=== PATIENT | female | born 1985 | race Caucasian/White ===

== ENCOUNTER → 2016-08-26 | Outpatient (CLI) | payer OTHER ==
--- NOTE | 2016-08-26 09:44 | US ---
August 26, 2016 Dear Providers at the [facility], Thank you for requesting a ultrasound to evaluate anatomy for your patient, Mrs. Hyman . As you know, Tameka is a 30 year old G 1, P 0 with a brock dating 19 w 5 d; KRISTEL of 0 01/15/17 by first trimester ultrasound. She had reassuring NIPT. ULTRASOUND Number of fetuses: 1 Placental location: Posterior; no evidence of previa Placental cord insertion: Intraplacental presentation: Cephalic Cervix: 4.3 cm viewed transabdominally Maximum Vertical Pocket: 4.9 cm The adnexa were evaluated. No pathology was seen. Right ovary is visualized and seen as normal. It measures 2.3 x 1.6 x 2.4 cm. Left ovary is visualized and seen as normal. It measures 3.4 x 1.9 x 1.9 cm. MEASUREMENTS: Biparietal diameter: 46 mm 20 weeks, 0 days Head circumference: 178 mm 20 weeks, 2 days Abdominal circumference: 150 mm 20 weeks, 2 days Femur length: 32 mm 20 weeks, 1 days Humerus length: 31 mm 20 weeks, 3 days Transcerebellar diameter: 21 mm 20 weeks, 1 days Average ultrasound age: 20 weeks, 2 days Estimated weight: 336 gm weight percentile: 71% ANATOMY Supratentorial brain: Normal including views of the falx, cavum septum pellucidum and choroids Lateral Ventricle: Normal, measuring 5.7 mm Posterior fossa: Normal including the cerebellum and cisterna magna Spine: Normal Nuchal fold: 3.3 mm normal Face: Normal views of the lip and nose area Profile: Normal Palate: Normal appearance of the alveolar ridge Heart: Normal four chamber view and the outflow tracts are seen appropriately oriented and crossing Heart Rate 132 bpm Diaphragm: Normal appearance without overt abnormality detected Stomach: Normal Umbilical cord insertion: Normal Right kidney: Normal Left kidney: Normal Bladder: Normal Number of cord vessels: Three Upper extremities: Normal Lower extremities: Normal Gender: Male IMPRESSION: 1. Intrauterine at 19 w 5 d, ultrasound is consistent with her established KRISTEL of 01/15/17 . 2. Normal anatomical survey. 3. Cervical length is normal at 4.3 cm without evidence of insufficiency. RECOMMENDATIONS: I was pleased to review today's ultrasound with your patient and her . I reassured her that t he baby is growing appropriately with normal amniotic fluid volume. Our detailed review of the anatomy did not reveal any overt abnormalities. Future ultrasound and consultation is left to your clinical discretion. Thank you for allowing us the opportunity to evaluate your patient. Should you have any further ques tions or concerns please do not hesitate to contact me. No E&M. Kenzie Clement MD [employer] Maternal Medicine Diagnosis Department of Obstetrics & Gynecology [facility]
--- NOTE | 2016-08-26 09:54 | US ---
Complete Obstetric Ultrasound History: 30-year-old with estimated gestational age of 19 weeks 5 days and EDC of January 15, 2017. Comparison: None available. Findings: Number: 1 Presentation: Vertex Placental location: Posterior. No previa. Cervix: Closed, measuring 4.4 cm transabdominally Maximum vertical pocket: 4.9 cm The ovaries are normal. Biometry: Biparietal diameter: 46 mm 20 weeks, 0 days Head circumference: 178 mm 20 weeks, 2 days Abdominal circumference: 150 mm 20 weeks, 2 days Femur length: 32 mm 20 weeks, 1 days Humerus length: 31 mm 20 weeks, 3 days Transcerebellar diameter: 21 mm 20 weeks, 1 days Average ultrasound age: 20 weeks, 2 days EDC based on today's average ultrasound age: January 11, 2017 Estimated weight is 336 gms +/- 49 gms. The estimated weight percentile is 71 % based on previous dating. ANATOMY SURVEY: Supratentorial brain: Normal Posterior fossa: Normal Spine: Normal Nose and lips: Normal Heart: Four chamber heart with heart rate of 132. The outflow tracts are normal. Stomach: Normal Umbilical cord insertion: Normal Kidneys: Normal Bladder: Normal Number of cord vessels: Three Upper extremities: Normal Lower extremities: Normal Impression: 1. Living single intrauterine with size concordant with dates. 2. Unremarkable anatomy. Please see separate dictation for consultation performed by Kenzie Clement MD, the same day.
== END ==
LOC: FIMAGING 07:40
PROVIDERS: ATTEND Advanced Practice Midwife
DX: Z34.02 Encounter for supervision of normal first pregnancy, second trimester (principal); Z3A.19 19 weeks gestation of pregnancy

== ENCOUNTER → 2017-01-22 | Outpatient (CLI) | payer OTHER | LOC: FIMAGING 16:43 | PROVIDERS: ATTEND Advanced Practice Midwife | DX: O48.0 Post-term pregnancy (principal); Z3A.41 41 weeks gestation of pregnancy ==